=== PATIENT | male | born 1965 | race Caucasian/White ===

== ENCOUNTER → 2020-08-20 | Outpatient (CLI) | payer MEDICAID, SELFPAY ==
--- NOTE | 2020-08-20 15:25 | REP ---
INDICATION: DYSPHAGIA FOLLOWING CEREBRAL INFARCTION. COMPARISON: None. TECHNIQUE: The procedure was performed by Lisette Roach [facility], under the direct supervision of Dr. Gallegos. The procedure was performed with Swathi Sanders from speech pathology present. 5 ml aliquots of thin, pudding, mixed fruit, soft food, hard food, honey thick and nectar thick consistency barium was administered. FINDINGS: No aspiration or penetration was visualized during the exam. The detailed report of this examination will be provided by speech pathology. . IMPRESSION: Unremarkable modified barium swallow. 2.8 minutes of fluoroscopy time was utilized for this procedure. Some fluoroscopic images are performed with last image hold technology. These images require no additional radiation <Electronically signed by Lisette Roach > 08/20/20 1421 <Electronically signed by Sanjeev Gallegos > 08/20/20 2080
== END ==
LOC: M ST 12:56
PROVIDERS: ATTEND Family Medicine
DX: I69.391 Dysphagia following cerebral infarction (principal)